=== PATIENT | male | born 1990 | race Caucasian/White ===

== ENCOUNTER 2023-03-08 15:45 | Outpatient (CLI) | payer OTHER, SELFPAY | END 2023-03-08 15:46 | disposition home or self-care (01) | PROVIDERS: PCP Family Medicine; Visit Provider Family Medicine | DX: R53.83 Other fatigue (principal); R10.9 Unspecified abdominal pain; R19.4 Change in bowel habit; K59.00 Constipation, unspecified; Z13.6 Encounter for screening for cardiovascular disorders | CPT/HCPCS: 80053; 80061; 83516; 84443 ==

== ENCOUNTER 2024-12-02 11:23 | Outpatient (CLI) | payer OTHER, SELFPAY | END 2024-12-02 11:24 | disposition home or self-care (01) | LOC: NFLDREF 12-10 22:10 | PROVIDERS: PCP Family Medicine; Referring Provider Family Medicine; Visit Provider Family Medicine | DX: R19.4 Change in bowel habit (principal) | CPT/HCPCS: 87177; 87209 ==